=== PATIENT | female | born 1995 | race Caucasian/White ===

== ENCOUNTER 2021-10-10 21:30 | Emergency (ER) | payer OTHER ==
[2021-10-10 21:53] VITALS: BP 120/71; PULSE 80; O2SAT 97
--- NOTE | 2021-10-10 22:18 | ERPHSYRPT ---
- History of Present Illness Time Seen by Provider: 10/10/21 21:50 Source: patient Exam Limitations: no limitations Patient Subjective Stated Complaint: "I noticed some itching to my leg but then I checked and noticed what appears to be a bite to my leg". Triage Nursing Assessment: Pt presents to ER with complaints of possible bite to inner left thigh. States area began to itch yesterday and worked all day and then realized the redness to area. Pt did hyun area and there is noticable redness and bruising to area. Pt does not recall injury or bite per say. Pt is alert and oriented x 3. Skin is pink, warm, and dry. Respirations are unlabored at this time. Pt is able to ambulate without difficulty. Rates pain 2 out of 10. Physician History: Patient is a 26-year-old female presents to our ED for evaluation of a pruritic papule on the medial aspect of her thigh. Patient has been scratching at the area. Patient observed the area yesterday. Patient thinks that it may be an insect bite. But she is not sure. She has no other complaints. No systemic manifestations. The area is mildly irritated likely due to patient scratching however there is no cellulitis. There is no drainage. There is no reactive lym phadenopathy. Extremities neurovascular intact distally. No fever. Patient is otherwise healthy. She has no immunocompromising states. Patient voices no other complaints or concerns at this time. Portions of this note were created with voice recognition technology. There may be grammatical, spelling, punctuation or sound alike errors Timing/Duration: yesterday Severity: mild Modifying Factors: Improves With: nothing Associated Symptoms: denies symptoms Allergies/Adverse Reactions: Penicillins Allergy (Unknown, Verified 10/10/21 21:53) Home Medications: Methimazole 5 mg PO DAILY 10/10/21 [History] Hx Tetanus, Diphtheria Vaccination/Date Given: No Hx Influenza Vaccination/Date Given: No Hx Pneumococcal Vaccination/Date Given: No Immunizations Up to Date: Yes Travel Risk - International Travel Have you traveled outside of the country in past 3 weeks: No - Coronavirus Screening Are you exhibiting any of the following symptoms?: No Close contact with a COVID-19 positive Pt in past 14-21 Days: No - Vaccine Status Have you recieved a Covid-19 vaccination: No - Review of Systems Constitutional: No Symptoms, No Fever, No Chills Eyes: No Symptoms Ears, Nose, & Throat: No Symptoms Respiratory: No Symptoms, No Cough, No Dyspnea Cardiac: No Symptoms, No Chest Pain, No Edema, No Syncope Abdominal/Gastrointestinal: No Symptoms, No Abdominal Pain, No Nausea, No Vomiting, No Diarrhea Genitourinary Symptoms: No Symptoms, No Dysuria Musculoskeletal: No Symptoms, No Back Pain, No Neck Pain Skin: No Symptoms, No Rash Neurological: No Symptoms, No Dizziness, No Focal Weakness, No Sensory Changes Psychological: No Symptoms Endocrine: No Symptoms Hematologic/Lymphatic: No Symptoms Immunological/Allergic: No Symptoms All Other Systems: Reviewed and Negative - Past Medical History Pertinent Past Medical History: Yes Other Medical History: graves disease - Past Surgical History Past Surgical History: Yes Musculoskeletal: Orthopedic Surgery Other Surgical History: wisdom teeth - Social History Smoking Status: Never smoker Exposure to second hand smoke: No Drug Use: marijuana Patient Lives Alone: No - Female History Hx Last Menstrual Period: 10/09/21 Hx Now: No - Nursing Vital Signs Nursing Vital Signs: Initial Vital Signs Temperature 97.4 F 10/10/21 21:47 Pulse Rate 80 10/10/21 21:47 Respiratory Rate 16 10/10/21 21:47 Blood Pressure 120/71 10/10/21 21:47 O2 Sat by Pulse Oximetry 97 10/10/21 21:47 Pain Scale Pain Intensity 2 - Physical Exam General Appearance: no apparent distress, alert Eye Exam: PERRL/EOMI, eyes nml inspection Ears, Nose, Throat Exam: normal ENT inspection, TMs normal, pharynx normal, moist mucous membranes Neck Exam: normal inspection, non-tender, supple, full range of motion Respiratory Exam: normal breath sounds, lungs clear, airway intact, No respiratory distress Cardiovascular Exam: regular rate/rhythm, normal heart sounds, normal peripheral pulses Gastrointestinal/Abdomen Exam: soft, normal bowel sounds, No tenderness, No mass Back Exam: normal inspection, normal range of motion, No CVA tenderness, No vertebral tenderness Extremity Exam: normal inspection, normal range of motion, pelvis stable Neurologic Exam: alert, oriented x 3, cooperative, normal mood/affect, nml cerebellar function, nml station & gait, sensation nml, No motor deficits Skin Exam: normal color, warm, dry, other (There is 1 papule medial aspect of patient's left thigh that patient states is pruritic. Patient has been scratching at it. There is no drainage. No signs of infection. No cellulitis. No tenderness. No heat generation. No swelling. There is a little ecchymosis at the area.), No rash, No laceration Lymphatic Exam: No adenopathy SpO2 Interpretation: normal SpO2: 97 O2 Delivery: Room Air - Course Nursing assessment & vital signs reviewed: Yes - Progress Progress: unchanged Progress Note: Patient declined pain medication. There is a papule medial aspect of patient's left thigh. Patient has been scratching at it. Mild reactive hyperemia/erythema. There is no cellulitis. No reactive lymphadenopathy. No lymphangitis. No open or draining lesions. No heat generation. No tenderness. No swelling. No signs of infection at all. I advised patient that she should stop scratching at it. May be tried Benadryl if needed for itching. No indication for antibiotics at this time. No indication for imaging studies. Patient has no systemic manifestations. No indication for work-up. Patient is healthy she has no immune compromising conditions. It is likely that this small lesion will heal on its own. We advised the patient to follow-up with a primary care doctor within a week. Patient to call tomorrow to schedule an appointment. Patient will monitor the progress using her phone and avoid scratching or local trauma to the area. Patient voices no other complaints or concerns at this time. Portions of this note were created with voice recognition technology. There may be grammatical, spelling, punctuation or sound alike errors 10/10/21 22:25 Counseled pt/family regarding: diagnosis, need for follow-up - Departure Departure Disposition: Home Clinical Impression: Papule of skin, pruritic papule Condition: Stable Critical Care Time: No Referrals: NGOC MURO [Primary Care Provider] - Follow up/PCP as directed Additional Instructions: Discharge/Care Plan RAJWINDER JAIMES was seen on 10/10/21 in the Emergency Room. The patient was counseled regarding Diagnosis,Lab results, Imaging studies, need for follow up and when to return to the Emergency Room. Prescriptions given: Discharge Note I have spoken with the patient and/or caregivers. I have explained the patient's condition, diagnosis and treatment plan based on the information available to me at this time. I have answered the patient's and/or caregiver's questions and addressed any concerns. The patient and/or caregivers have as good understanding of the patient's diagnosis, condition and treatment plan as can be expected at this point. The vital signs have been stable. The patient's condition is stable and appropriate for discharge from the emergency department. The patient will pursue further outpatient evaluation with the primary care physician or other designated or consulting physician as outlined in the discharge instructions. The patient and/or caregivers are agreeable to this plan of care and follow-up instructions have been explained in detail. The patient and/or caregivers have received these instruction. The patient/and or caregivers are aware that any significant change in condition or worsening of symptoms should prompt an immediate return to this or the closest emergency department or call 911.
== END 2021-10-10 22:30 | disposition home or self-care (01) ==
LOC: ED 21:30
DX: R23.8 Other skin changes (principal); L29.8 Other pruritus; Z79.899 Other long term (current) drug therapy; Z28.310 Unvaccinated for COVID-19
CPT/HCPCS: 99281

== ENCOUNTER 2023-08-23 12:38 | Emergency (ER) | payer OTHER ==
[2023-08-23 12:56] VITALS: TEMP 98.8; O2SAT 97
[2023-08-23] MEDS ORDERED: Sodium Chloride 0.9% 1000 ML 1,000 ML ONE ×2 (13:03→13:34)
[2023-08-23] MEDS: Sodium Chloride 0.9% 1000 ML 1,000 ML IV STA (13:09)
[2023-08-23] MEDS: Sodium Chloride 0.9% 1000 ML 1,000 ML IV SCH (13:37)
--- NOTE | 2023-08-23 13:40 | ERPHSYRPT ---
- History of Present Illness Time Seen by Provider: 08/23/23 13:25 Source: patient Exam Limitations: no limitations Patient Subjective Stated Complaint: weakness due to lack of food and water intake Triage Nursing Assessment: patient has not been eating or drinking due to PP anxiety/depression. therefore feels weak. she is currently both twins. having to supplement due to milk not coming in because of diet and fluid intake. denies SI/HI. patient reports having a hard time mentally. lack of motivation, not wanting to care for her children. she is tearful during nurse assessment. 04/03/23 was when she had a c section. feelings have started over the past month. Physician History: 27yo f presents for severe anxiety and depression that she reports has been worsening for the past 5 months, since she had twins. Pt reports feeling very fatigued daily, has had very limited PO intake, has not been bathing or caring for herself much at all. Pt reports she is having difficulty finding the energy and will to care for her children. Pt denies any thoughts of SI or HI but does state she has been feeling like she does not want to care for them anymore. Pt reports she wants to be healthy and feel better mentally to be there for her children. Pt reports minimal family support, states the children's father is minimally involved w/ care. Timing/Duration: other (4 months) Severity of Symptoms-Max: moderate Severity of Symptoms-Current: moderate Context related to: spouse, son Associated Symptoms: anxiety, depressed, insomnia, No hallucinating, No suicidal ideation Previous symptoms: no prior history Allergies/Adverse Reactions: Penicillins Allergy (Unknown, Verified 10/10/21 21:53) Hx Tetanus, Diphtheria Vaccination/Date Given: No Hx Influenza Vaccination/Date Given: No Hx Pneumococcal Vaccination/Date Given: No Travel Risk - International Travel Have you traveled outside of the country in past 3 weeks: No - Emerging Infectious Disease Are you exhibiting symptoms associated with any current EIDs: No - Past Medical History Pertinent Past Medical History: Yes Endocrine Medical History: Hyperthyroidism Other Medical History: graves disease - Past Surgical History Past Surgical History: Yes Musculoskeletal: Orthopedic Surgery Female Surgical History: Section Other Surgical History: wisdom teeth - Female History Hx Now: No - Social History Smoking Status: Never smoker Exposure to second hand smoke: No Drug Use: marijuana Patient Lives Alone: No - Review of Systems Constitutional: Fatigue, Weight Loss, No Fever, No Chills Respiratory: Dyspnea, No Cough, No Stridor, No Wheezing Cardiac: Chest Pain, No Edema, No Palpitations, No Syncope Abdominal/Gastrointestinal: Nausea, Appetite Changes, No Abdominal Pain Genitourinary Symptoms: No Dysuria, No Frequency, No Vaginal Bleeding, No Vaginal Discharge Neurological: No Symptoms Psychological: Anxiety, Depression, Emotional Lability, No Alcohol Abuse, No Drug Abuse, No Suicidal Ideations, No Homicidal Ideations, No Hallucinations - Nursing Vital Signs Nursing Vital Signs: Initial Vital Signs Temperature 98.8 F 08/23/23 12:42 Pulse Rate 145 H 08/23/23 12:42 Respiratory Rate 20 08/23/23 12:42 Blood Pressure 115/90 08/23/23 12:42 O2 Sat by Pulse Oximetry 97 08/23/23 12:42 Pain Scale Pain Intensity 0 - Physical Exam General Appearance: no apparent distress, anxiety Respiratory Exam: normal breath sounds, lungs clear, airway intact, No chest tenderness, No respiratory distress, No crackles/rales, No rhonchi, No wheezing, No stridor Cardiovascular Exam: normal heart sounds, tachycardia, capillary refill <2 sec, No edema Gastrointestinal/Abdominal Exam: soft, No tenderness, No distention Neurological Exam: alert, oriented x 3, anxious Appearance: no memory impairment, disheveled Behavior/Eye Contact/Speech: alert & cooperative, good eye contact Thoughts/Hallucinations: normal thought pattern, no apparent hallucination Skin Exam: normal color, warm, dry SpO2 Interpretation: normal SpO2: 97 O2 Delivery: Room Air - Course Nursing assessment & vital signs reviewed: Yes EKG Interpreted by Me: RATE (140), Sinus Tach (qtcb 422, not suggestive of acute ischemia) Ordered Tests: Active Orders 24 hr Category Date Time Status CBC W DIFF Stat Lab 08/23/23 13:45 Completed CMP Stat Lab 08/23/23 13:45 Completed FREE T3 [FREE TRIODOTHYRONINE] Stat Lab 08/23/23 13:45 Completed TSH, 3RD Generation Stat Lab 08/23/23 13:45 Completed UA W/RFX UR CULTURE Stat Lab 08/23/23 13:34 Ordered Urine Triage Profile Stat Lab 08/23/23 13:34 Ordered Medication Summary Generic Name Dose Route Start Last Admin Trade Name Freq PRN Reason Stop Dose Admin Sodium Chloride 1,000 mls @ 150 mls/hr 08/23/23 13:45 08/23/23 13:37 Sodium Chloride 0.9% 1000 Ml IV 09/22/23 13:44 150 mls/hr .[id number] ARUN Administration Discontinued Medications Generic Name Dose Route Start Last Admin Trade Name Wiliq PRN Reason Stop Dose Admin Atenolol 25 mg 08/23/23 15:47 08/23/23 16:09 Atenolol 50 Mg Tablet PO 08/23/23 15:48 Not Given STAT ONE Hydroxyzine HCl 25 mg 08/23/23 13:29 08/23/23 13:44 Hydroxyzine Hcl 25 Mg Tablet PO 08/23/23 13:30 25 mg STAT ONE Administration Hydroxyzine HCl Confirm 08/23/23 13:44 Hydroxyzine Hcl 25 Mg Tablet Administered 08/23/23 13:45 Dose 25 mg .ROUTE .STK-MED ONE Sodium Chloride 1,000 mls @ 999 mls/hr 08/23/23 12:59 08/23/23 16:17 Sodium Chloride 0.9% 1000 Ml IV 08/23/23 13:59 Infused .Q1H1M STA Infusion Sodium Chloride Confirm 08/23/23 13:03 Sodium Chloride 0.9% 1000 Ml Administered 08/23/23 13:04 Dose 1,000 mls @ ud .ROUTE .STK-MED ONE Metoprolol Tartrate 12.5 mg 08/23/23 15:54 08/23/23 15:58 Metoprolol Tartrate 25 Mg Tab PO 08/23/23 15:55 12.5 mg STAT ONE Administration Metoprolol Tartrate Confirm 08/23/23 15:56 Metoprolol Tartrate 25 Mg Tab Administered 08/23/23 15:57 Dose 25 mg .ROUTE .STK-MED ONE Lab/Rad Data: Laboratory Result Diagrams 08/23/23 13:45 08/23/23 13:45 Laboratory Results 08/23/23 08/23/23 08/23/23 Range/Units 13:45 13:45 13:45 WBC (3.98-10.04) x10^3/uL RBC (3.93-5.22) x10^6/uL Hgb (11.2-15.7) g/dL Hct (34.1-44.9) % MCV (79.4-94.8) fL MCH (25.6-32.2) pg MCHC (32.2-35.5) g/dL RDW (11.7-14.4) % Plt Count (182-369) x10^3/uL MPV (9.4-12.3) fL Gran % (34.0-71.1) % Immature Gran % (Auto) (0.001-0.429) % Nucleat RBC Rel Count (0.00-0.2) % Eos # (Auto) (0.04-0.36) x10^3/uL Immature Gran # (Auto) (0.001-0.031) x10^3u/L Absolute Lymphs (auto) (1.18-3.74) x10^3/uL Absolute Monos (auto) (0.24-0.86) x10^3/uL Absolute Nucleated RBC (0.00-0.012) x10^3u/L Lymphocytes % (19.3-51.7) % Monocytes % (4.7-12.5) % Eosinophils % (0.7-5.8) % Basophils % (0.1-1.2) % Absolute Granulocytes (1.56-6.13) x10^3/uL Basophils # (0.01-0.08) x10^3/uL Sodium (135-145) mmol/L Potassium (3.5-5.1) mmol/L Chloride (98-107) mmol/L Carbon Dioxide (22-30) mmol/L Anion Gap (5-15) MEQ/L BUN (7-17) mg/dL Creatinine (0.52-1.04) mg/dL Estimated GFR ML/MIN Glucose (74-106) mg/dL Calcium (8.4-10.2) mg/dL Total Bilirubin (0.2-1.3) mg/dL AST (14-36) U/L ALT (0-35) U/L Alkaline Phosphatase (38-126) U/L Serum Total Protein (6.3-8.2) g/dL Albumin (3.5-5.0) g/dL Free T4 > 6.94 H (0.78-2.19) ng/dL Free T3 pg/mL > 22.3 H (2.77-5.27) pg/mL TSH 3rd Generation < 0.015 L (0.470-4.680) mIU/L 08/23/23 08/23/23 Range/Units 13:45 13:45 WBC 3.2 L (3.98-10.04) x10^3/uL RBC 4.19 (3.93-5.22) x10^6/uL Hgb 11.9 (11.2-15.7) g/dL Hct 37.7 (34.1-44.9) % MCV 90.0 (79.4-94.8) fL MCH 28.4 (25.6-32.2) pg MCHC 31.6 L (32.2-35.5) g/dL RDW 13.5 (11.7-14.4) % Plt Count 228 (182-369) x10^3/uL MPV 11.0 (9.4-12.3) fL Gran % 63.2 (34.0-71.1) % Immature Gran % (Auto) 0.3 (0.001-0.429) % Nucleat RBC Rel Count 0.0 (0.00-0.2) % Eos # (Auto) 0.02 L (0.04-0.36) x10^3/uL Immature Gran # (Auto) 0.01 (0.001-0.031) x10^3u/L Absolute Lymphs (auto) 0.75 L (1.18-3.74) x10^3/uL Absolute Monos (auto) 0.40 (0.24-0.86) x10^3/uL Absolute Nucleated RBC 0.00 (0.00-0.012) x10^3u/L Lymphocytes % 23.2 (19.3-51.7) % Monocytes % 12.4 (4.7-12.5) % Eosinophils % 0.6 L (0.7-5.8) % Basophils % 0.3 (0.1-1.2) % Absolute Granulocytes 2.04 (1.56-6.13) x10^3/uL Basophils # 0.01 (0.01-0.08) x10^3/uL Sodium 145 (135-145) mmol/L Potassium 3.3 L (3.5-5.1) mmol/L Chloride 114 H (98-107) mmol/L Carbon Dioxide 11 L* (22-30) mmol/L Anion Gap 21.4 H (5-15) MEQ/L BUN 11 (7-17) mg/dL Creatinine 0.31 L (0.52-1.04) mg/dL Estimated GFR 146.0 ML/MIN Glucose 80 (74-106) mg/dL Calcium 10.0 (8.4-10.2) mg/dL Total Bilirubin 0.80 (0.2-1.3) mg/dL AST 119 H (14-36) U/L ALT 119 H (0-35) U/L Alkaline Phosphatase 55 (38-126) U/L Serum Total Protein 6.5 (6.3-8.2) g/dL Albumin 3.8 (3.5-5.0) g/dL Free T4 (0.78-2.19) ng/dL Free T3 pg/mL (2.77-5.27) pg/mL TSH 3rd Generation (0.470-4.680) mIU/L - Progress Progress: improved Progress Note: 08/23/23 14:28 Wells score 1.5 - low risk for PE O2 sat 100% low suspicion for PE pt persistently tachycardic 130-150 despite fluid resuscitation pt not reporting improvement after hydroxyzine tele-consult w/ [facility] ordered 08/23/23 15:57 labs suggestive of hyperthyroidism will give metoprolol 12.5mg will monitor following administration pt spoke w/ tele health [facility] at [facility], is planning to follow up and continue counseling with them safety plan put in place for home 08/23/23 16:53 pt feeling better after b jennifer, hydroxyzine, speaking w/ counseling pt ready to return home, has safety plan in place through [facility], f/u scheduled / [facility] plan to dc home follow up closely / [facility] Call PCP (Lizette Huang) on 08/25/23 to schedule appt to discuss hyperthyroidism, depression/anxiety continue metoprolol 12.5mg (1/2 25mg tablet) once in the morning and once in the evening will send hydroxyzine 25mg tablet as needed for acute anxiety, can take up to 2 per day refer to safety plan for coping skills and stress management ideas return to ED if: develop thoughts of harming yourself or others, develop chest pains, develop shortness of breath, anxiety becomes unbearable, have episode of passing out Counseled pt/family regarding: lab results, diagnosis, need for follow-up Medical Desision Making - Risk of complications Low Risk: Low risk of morbidity from additional dx testing or treatment - Departure Departure Disposition: Home Clinical Impression: Tachycardia, Hyperthyroidism, Anxiety, Post depression Condition: Stable Critical Care Time: No Referrals: DREW HUANG NP [Primary Care Provider] - Follow up/PCP as directed Additional Instructions: plan to dc home follow up closely / [facility] Call PCP (Lizette Huang) on 08/25/23 to schedule appt to discuss hyperthyroidism, depression/anxiety continue metoprolol 12.5mg (1/2 25mg tablet) once in the morning and once in the evening will send hydroxyzine 25mg tablet as needed for acute anxiety, can take up to 2 per day refer to safety plan for coping skills and stress management ideas return to ED if: develop thoughts of harming yourself or others, develop chest pains, develop shortness of breath, anxiety becomes unbearable, have episode of passing out Prescriptions: Hydroxyzine HCl 25 mg [Atarax 25 mg] 25 mg PO Q12H #30 tablet Metoprolol Tartrate 25 mg [Lopressor 25MG Tab] 12.5 mg PO BID 30 Days #30 tab
[2023-08-23] MEDS ORDERED: ATARAX 25 MG ONE (13:44)
[2023-08-23] MEDS: ATARAX 25 MG PO ONE (13:44)
[2023-08-23 13:51] LABS: Absolute Neutrophil Ct (ANC) 2.04 x10^3/uL (1.56-6.13); BASOPHIL % 0.3 % (0.1-1.2); Basophil (Absolute #) 0.01 x10^3/uL (0.01-0.08); Eosinophil % 0.6 % (0.7-5.8); Eosinophil (Absolute #) 0.02 x10^3/uL (0.04-0.36); Hematocrit 37.7 % (34.1-44.9); Hemoglobin 11.9 g/dL (11.2-15.7); IMMATURE GRAN # 0.01 x10^3u/L (0.001-0.031); IMMATURE GRAN % 0.3 % (0.001-0.429); Lymphocyte (Absolute #) 0.75 x10^3/uL (1.18-3.74); Lymphocytes % 23.2 % (19.3-51.7); Mean Corpuscular Hemoglobin 28.4 pg (25.6-32.2); Mean Corpuscular Hgb Concent. 31.6 g/dL (32.2-35.5); Monocytes % 12.4 % (4.7-12.5); Neutrophil % 63.2 % (34.0-71.1); Platelet Count 228 x10^3/uL (182-369); Red Blood Count 4.19 x10^6/uL (3.93-5.22); Red Cell Distribution Width 13.5 % (11.7-14.4); White Blood Count 3.2 x10^3/uL (3.98-10.04)
[2023-08-23 15:15] LABS: ALBUMIN 3.8 g/dL (3.5-5.0); ANION GAP 21.4 MEQ/L (5-15); BILIRUBIN,TOTAL 0.8 mg/dL (0.2-1.3); Creatinine 1 0.31 mg/dL (0.52-1.04); Potassium 3.3 mmol/L (3.5-5.1); Total Protein 6.5 g/dL (6.3-8.2)
[2023-08-23] MEDS ORDERED: Lopressor 25MG Tab ONE (15:56)
[2023-08-23] MEDS: Lopressor 25MG Tab PO ONE (15:58)
[2023-08-23 16:09] VITALS: BP 109/56
[2023-08-23] MEDS: TENORMIN 50 MG PO ONE (16:09)
[2023-08-23 17:05] VITALS: PULSE 127; RESP 25
== END 2023-08-23 17:11 | disposition home or self-care (01) ==
LOC: ED 12:38
DX: O99.345 Other mental disorders complicating the puerperium (principal); F53.0 Postpartum depression; R00.0 Tachycardia, unspecified; E05.90 Thyrotoxicosis, unspecified without thyrotoxic crisis or storm; F41.9 Anxiety disorder, unspecified
CPT/HCPCS: 36000; 36415; 80053; 84439; 84443; 84481; 85025; 96360; 99284; A9270-GY